=== PATIENT | female | born 1975 ===

== ENCOUNTER → 2021-05-27 | Outpatient (CLI) | payer OTHER | END | disposition home or self-care (01) | LOC: PRENATAL 10:00 | PROVIDERS: ATTEND Obstetrics & Gynecology Maternal & Fetal Medicine | DX: O35.0XX1 Maternal care for (suspected) central nervous system malformation in fetus, fetus 1 (principal); O35.3XX1 Maternal care for (suspected) damage to fetus from viral disease in mother, fetus 1; O98.512 Other viral diseases complicating pregnancy, second trimester; O09.512 Supervision of elderly primigravida, second trimester; Z36.89 Encounter for other specified antenatal screening; Z3A.21 21 weeks gestation of pregnancy ==

== ENCOUNTER 2021-07-27 10:50 | Outpatient (CLI) | payer OTHER | END 2021-07-27 11:24 | disposition home or self-care (01) | LOC: PRENATAL 10:50 | PROVIDERS: ATTEND Obstetrics & Gynecology Maternal & Fetal Medicine | DX: O26.843 Uterine size-date discrepancy, third trimester (principal); O09.513 Supervision of elderly primigravida, third trimester; Z36.89 Encounter for other specified antenatal screening; Z3A.30 30 weeks gestation of pregnancy ==